=== PATIENT | male | born 1935 | race Caucasian/White ===

== ENCOUNTER 2021-07-16 03:49 | Inpatient (IN) | payer MEDICARE, OTHER ==
[~2021-07-16] VITALS: Ht 170.2 cm; Wt 72.6 kg
[2021-07-16] MEDS ORDERED: ONDANSETRON 4 MG/2 ML VIAL IV ONE (04:00)
[2021-07-16] MEDS ORDERED: IV NORMAL SALINE 1000 ML BAG IV ONE (04:00)
--- NOTE | 2021-07-16 04:00 | NUR ---
Patient bib RA from with c/o nausea and vomiting since this morning.
[2021-07-16 04:07] LABS: HEMATOCRIT 44.4 % (36.7-47.1); MEAN CORPUSCULAR HEMOGLOBIN 26.8 uug (23.8-33.4); MEAN CORPUSCULAR VOLUME 80.6 fL (73.0-96.2); PLATELET COUNT (AUTO) 174 K/uL (152-348)
[2021-07-16] MEDS ORDERED: ONDANSETRON 4 MG/2 ML VIAL ONE (04:12)
[2021-07-16 04:16] LABS: CREATININE 1.1 mg/dL (0.6-1.3); POTASSIUM 4.6 mmol/L (3.5-5.1)
[2021-07-16 04:21] LABS: BILIRUBIN,DIRECT 0.4 mg/dL (0.0-0.2); TOTAL PROTEIN, SERUM 7.2 g/dL (6.4-8.2)
[2021-07-16 04:32] LABS: NEUTROPHILS % (MANUAL) 0 % (42-75)
[2021-07-16] MEDS ORDERED: SWABABLE VALVE TRANSFER SET EA MC ONE (05:28)
[2021-07-16] MEDS ORDERED: IV NORMAL SALINE 250 ML IV ONE (05:28)
[2021-07-16] MEDS ORDERED: IOHEXOL 300MG/ML 100 ML INFUS..BTL ONE (05:28)
[2021-07-16 06:12] LABS: *BILIRUBIN,URIN NEGATIVE (NEGATIVE); *BLOOD, URINE NEGATIVE (NEGATIVE); *CLARITY,URINE CLEAR (CLEAR); *COLOR,URINE YELLOW (YELLOW); *KETONES,URINE 2+ (NEGATIVE); LEUKOCYTE ESTERASE ,URINE NEGATIVE (NEGATIVE); NITRITE, URINE NEGATIVE (NEGATIVE); PH,URINE 7.5 (5.0-8.0); UGLUCOSE NEGATIVE (NEGATIVE)
[2021-07-16 06:19] LABS: BACTERIA,URINE NONE SEEN /HPF (NONE SEEN); RBC,URINE 0-3 /HPF (0-3); SQUAMOUS EPITHELIAL CELL,UR FEW /HPF (NONE SEEN); WBC,URINE NONE SEEN /HPF (0-3)
--- NOTE | 2021-07-16 06:47 | NUR ---
PATIENT UNABLE TO RECALL COMPLETE MEDICAL HX AND HOME MEDICATION AT THIS TIME. CALLED PATIENT'S LUTHER TO OBTAIN HOME MEDS AND HX BUT NO ANSWER.
--- NOTE | 2021-07-16 07:08 | NUR ---
NG 16fr inserted to right nare and placed on intermittent low suction, patient tolerate well.
--- NOTE | 2021-07-16 07:13 | NUR ---
Handoff to GAGE Christine.
--- NOTE | 2021-07-16 07:22 | NUR ---
Dr Barajas spoke to Dr Vargas(Surgeon).
--- NOTE | 2021-07-16 07:25 | NUR ---
Pt denies nausea, NG draining yellowish/green GI content. Continue monitoring.
--- NOTE | 2021-07-16 10:24 | NUR ---
No C/O pain/nausea, pt is aware of being NPO. Pt assissted w/ urinal.
--- NOTE | 2021-07-16 14:31 | NUR ---
PT has NG drainage at this time. Addendum: 07/16/21 at 1557 by MYOUABIAN Less NG tube drainage.
--- NOTE | 2021-07-16 15:10 | NUR ---
Spoke to Pt's Gladys. Meication list provided, and entered in [employer].
[2021-07-16] MEDS ORDERED: CINN1CAP PO (15:13)
[2021-07-16] MEDS ORDERED: [UNRECOGNIZED DRUG - OTHER] IJ (15:13)
[2021-07-16] MEDS ORDERED: VITA1CAP PO (15:13)
[2021-07-16] MEDS ORDERED: ZINC50TA65 PO (15:13)
[2021-07-16] MEDS ORDERED: IPRA0.2S48 NEB (15:13)
[2021-07-16] MEDS ORDERED: ASPI-612 PO (15:13)
[2021-07-16] MEDS ORDERED: LEVO75TA7 PO (15:13)
[2021-07-16] MEDS ORDERED: CARB1TAB21 PO (15:13)
[2021-07-16] MEDS ORDERED: ESOM40CA PO (15:13)
[2021-07-16] MEDS ORDERED: RASA0.5T2 PO (15:13)
[2021-07-16] MEDS ORDERED: DIATR MEGLU/DIATRIZOATE SODIUM 30 ML BOTTLE ONE (15:20)
--- NOTE | 2021-07-16 15:20 | NUR ---
Placed a call to [employer]. Awaiting Dr Borrero call back.
--- NOTE | 2021-07-16 15:25 | NUR ---
NG tube clamped. Pt started drinking oral contrast.
--- NOTE | 2021-07-16 15:35 | NUR ---
Pt able to tolorate oral contrast, denies nausea. biofuels technology manager at the bedside.
--- NOTE | 2021-07-16 16:46 | NUR ---
2nd call placed for Dr Borrero, awaiting call back.
--- NOTE | 2021-07-16 16:50 | NUR ---
Dr Borrero at the bedside for MSE.
[2021-07-16] MEDS ORDERED: ONDANSETRON 4 MG/2 ML VIAL IV PRN (18:00)
[2021-07-16] MEDS ORDERED: ZOLPIDEM 5 MG TABLET PO PRN (18:00)
[2021-07-16] MEDS ORDERED: MORPHINE SULFATE 4 MG/1 ML DISP.SYRIN IV PRN (18:00)
[2021-07-16] MEDS ORDERED: ACETAMINOPHEN 325 MG TABLET PO PRN (18:00)
[2021-07-16] MEDS ORDERED: Z GUARD REMEDY PASTE 57 GM TUBE TOP PRN (18:00)
[2021-07-16] MEDS ORDERED: MAGNESIUM HYDROXIDE 30 ML LIQUID UDC PO PRN (18:00)
[2021-07-16 18:14] VITALS: BP 118/66
[2021-07-16] MEDS: IV D5 1/2 NS 1000 ML 1,000 ML IV PRN (18:41)
--- NOTE | 2021-07-16 19:30 | NUR ---
RECEIVE PT AWAKE, ALERT AND ORIENTEDX4. PT IN NO ACUTE DISTRESS. IV INTACT. PT ON NGTUBE NO SUCTION BECAUSE PT WILL HAVE HIS SMALL BOWEL XRAY. SON IN LAW AT BEDSIDE. SAFETY AND COMFORT PROVIDED. WILL CONTINUE TO MONITOR.
[2021-07-16 20:00] VITALS: BP 98/53
--- NOTE | 2021-07-16 20:00 | NUR ---
message Dr. Borrero regarding reconciliation medication of the pt specificcaly Parkinson's medication and update that the xray for small bowel will be 0h.
--- NOTE | 2021-07-16 22:21 | NUR ---
Dr. Borrero replied to hold the po meds because he is on ngt suction at 2205h
[2021-07-17] MEDS: IV D5 1/2 NS 1000 ML 1,000 ML IV PRN ×3 (02:45→22:10)
[2021-07-17 04:00] VITALS: BP 99/62
--- NOTE | 2021-07-17 05:53 | NUR ---
MRI CHECKLIST SIGNED. PT IN NO ACUTE DISTRESS.
--- NOTE | 2021-07-17 05:56 | NUR ---
PT SLEPT INTERMITTENTLY.PT IN NO ACUTE DISTRESS. IV INTACT. NGT INTACT , LOW CONTINUOUS INTERMITTENT SUCTION AND DRAINING BILIOUS DRAINAGE. . PRESCRIBED MEDICATION GIVEN AND PT TOLERATED IT WELL.SAFETY AND COMFORT PROVIDED.ALL NEEDS ARE MET. WILL ENDORSE TO INCOMING NURSE FOR CONTINUITY OF CARE.
[2021-07-17 07:59] LABS: HEMATOCRIT 38.3 % (36.7-47.1); MEAN CORPUSCULAR HEMOGLOBIN 27.1 uug (23.8-33.4); MEAN CORPUSCULAR VOLUME 80.4 fL (73.0-96.2); PLATELET COUNT (AUTO) 160 K/uL (152-348)
[2021-07-17 08:08] LABS: CREATININE 0.8 mg/dL (0.6-1.3); PHOSPHOROUS 3.2 mg/dL (2.5-4.9); POTASSIUM 3.7 mmol/L (3.5-5.1)
[2021-07-17] MEDS: PANTOPRAZOLE SODIUM 40 MG VIAL IV SCH (08:17)
[2021-07-17 08:22] LABS: THYROID STIMULATING HORMONE 1.992 mIU/mL (0.358-3.740)
[2021-07-17 12:00] VITALS: BP 104/64
[2021-07-17 16:00] VITALS: BP 126/69
--- NOTE | 2021-07-17 18:35 | NUR ---
little blood noted in the ng tube primary Md and surgery md notified new orders received noted and carried out.
[2021-07-17 20:00] VITALS: BP 93/65
[2021-07-18 04:00] VITALS: BP 114/68
--- NOTE | 2021-07-18 05:26 | NUR ---
Pt slept throughout the night. Jerry pain or SOB. IV site intact. NG tube hooked up to low intermittent suction, tolerating well. Safety and comfort provided. No other issues or concerns at this time, will endorse to day shift.
[2021-07-18] MEDS: IV D5 1/2 NS 1000 ML 1,000 ML IV PRN ×2 (06:10→15:27)
[2021-07-18 06:51] LABS: HEMATOCRIT 38.2 % (36.7-47.1); MEAN CORPUSCULAR HEMOGLOBIN 26.8 uug (23.8-33.4); MEAN CORPUSCULAR VOLUME 81.3 fL (73.0-96.2); PLATELET COUNT (AUTO) 158 K/uL (152-348)
[2021-07-18 07:18] LABS: CREATININE 0.7 mg/dL (0.6-1.3); PHOSPHOROUS 3.2 mg/dL (2.5-4.9); POTASSIUM 3.6 mmol/L (3.5-5.1)
[2021-07-18] MEDS: PANTOPRAZOLE SODIUM 40 MG VIAL IV SCH (08:01)
--- NOTE | 2021-07-18 09:29 | NUR ---
pt walk in the hallway tolerated well mo passing gas or burping
[2021-07-18 11:29] VITALS: BP 132/75
[2021-07-18 14:39] VITALS: BP 127/75
[2021-07-18 20:07] VITALS: BP 117/70
--- NOTE | 2021-07-18 23:31 | NUR ---
Informed by evening shift Technologist: Per RN Cherelle SCHUMACHER 1 view to be performed in the AM. Scheduled as a Routine abdominal distention, f/u sbft; found on requisition face. notes written and will scanned when finished
[2021-07-19] MEDS: IV D5 1/2 NS 1000 ML 1,000 ML IV PRN ×3 (00:10→18:08)
[2021-07-19 04:25] VITALS: BP 119/70
--- NOTE | 2021-07-19 05:49 | NUR ---
Pt slept throughout the night. Denies pain or SOB. NG tube hooked up to low intermittent suction, tolerating well with no pain. KUB scheduled today. Patient IV site intact. Able to make needs known. No distress noted. No other issues or concerns at this time, will endorse to day shift.
[2021-07-19 07:24] LABS: HEMATOCRIT 38.2 % (36.7-47.1); MEAN CORPUSCULAR HEMOGLOBIN 26.6 uug (23.8-33.4); MEAN CORPUSCULAR VOLUME 81.3 fL (73.0-96.2); PLATELET COUNT (AUTO) 180 K/uL (152-348)
[2021-07-19 07:51] LABS: CREATININE 0.8 mg/dL (0.6-1.3); PHOSPHOROUS 3.6 mg/dL (2.5-4.9); POTASSIUM 3.6 mmol/L (3.5-5.1)
[2021-07-19] MEDS: PANTOPRAZOLE SODIUM 40 MG VIAL IV SCH (08:02)
[2021-07-19 12:10] VITALS: BP 124/59
[2021-07-19] MEDS ORDERED: PIPERACILLIN SODIUM/TAZOBACTAM 3.375 G in IV DEXTROSE 5% 50 ML IV ONE (14:00)
[2021-07-19 16:09] VITALS: BP 107/45
[2021-07-19] MEDS ORDERED: PIPERACILLIN SODIUM/TAZOBACTAM 3.375 G in IV DEXTROSE 5% 50 ML IV SCH (18:00)
[2021-07-19 20:00] VITALS: BP 103/49
[2021-07-19] MEDS: PIPERACILLIN SODIUM/TAZOBACTAM 3.375 G in IV DEXTROSE 5% 100 ML IV SCH (22:21)
[2021-07-20 04:10] VITALS: BP 102/58
--- NOTE | 2021-07-20 05:32 | NUR ---
Pt slept throughout the night. Denies pain or any discomfort. No SOB. IV was leaking, new one started, tolerated well. Running ordered fluids. NG tube in place on low intermittent suction. No other issues or concerns at this time. Safety and comfort provided, will endorse to day shift.
[2021-07-20] MEDS: IV D5 1/2 NS 1000 ML 1,000 ML IV PRN ×2 (05:58→15:52)
[2021-07-20] MEDS: PIPERACILLIN SODIUM/TAZOBACTAM 3.375 G in IV DEXTROSE 5% 100 ML IV SCH ×3 (06:02→22:48)
[2021-07-20 06:17] LABS: HEMATOCRIT 38.1 % (36.7-47.1); MEAN CORPUSCULAR HEMOGLOBIN 26.6 uug (23.8-33.4); MEAN CORPUSCULAR VOLUME 80.7 fL (73.0-96.2); PLATELET COUNT (AUTO) 213 K/uL (152-348)
[2021-07-20 06:48] LABS: CREATININE 0.9 mg/dL (0.6-1.3); PHOSPHOROUS 5.1 mg/dL (2.5-4.9); POTASSIUM 3.5 mmol/L (3.5-5.1)
--- NOTE | 2021-07-20 07:00 | NUR ---
RECEIVE PT AWAKE, ALERT AND ORIENTEDX4. PT IN NO ACUTE DISTRESS. IV INTACT. PT ON N G TUBE SUCTION to low interment . SAFETY AND COMFORT PROVIDED. WILL CONTINUE TO MONITOR. call light with in reach
[2021-07-20] MEDS: PANTOPRAZOLE SODIUM 40 MG VIAL IV SCH (09:02)
[2021-07-20 12:00] VITALS: BP 97/60
[2021-07-20 16:10] VITALS: BP 115/67
--- NOTE | 2021-07-20 17:56 | NUR ---
pt walk in the hallway tolerated well
--- NOTE | 2021-07-20 19:00 | NUR ---
RECD PT IN BED, RESTING QUIETLY , NO DISTRESS NOTED,ALERT AND ORIENTED,IV SITE ON RIGHT FOREARM PATENT AND INTACT,D51/2 NS@125 ML/HR,NPO MAINTAINED,ABLE TO USE URINAL.NGT IN PLACE, CONNECTED TO LOW INTERMITTENT SUCTION.SLEPT ON AND OFF. CALL LITE W/I REACH.
[2021-07-20 20:06] VITALS: BP 116/66
[2021-07-21] MEDS: IV D5 1/2 NS 1000 ML 1,000 ML IV PRN ×3 (00:45→17:15)
[2021-07-21 04:06] VITALS: BP 129/57
[2021-07-21] MEDS: PIPERACILLIN SODIUM/TAZOBACTAM 3.375 G in IV DEXTROSE 5% 100 ML IV SCH ×3 (05:33→21:01)
[2021-07-21 06:35] LABS: HEMATOCRIT 38.6 % (36.7-47.1); MEAN CORPUSCULAR HEMOGLOBIN 26.5 uug (23.8-33.4); MEAN CORPUSCULAR VOLUME 80.5 fL (73.0-96.2); PLATELET COUNT (AUTO) 230 K/uL (152-348)
[2021-07-21 06:43] LABS: CREATININE 0.8 mg/dL (0.6-1.3); PHOSPHOROUS 3.8 mg/dL (2.5-4.9); POTASSIUM 3.4 mmol/L (3.5-5.1)
--- NOTE | 2021-07-21 07:00 | NUR ---
PT RECEIVED IN BED AWAKE NO C/O PAIN NOTED ,NG TUBE IS ON LOW INTERMENT SUCTION ,CALL LIGHT WITH IN REACH
[2021-07-21] MEDS: PANTOPRAZOLE SODIUM 40 MG VIAL IV SCH (08:16)
[2021-07-21 09:50] LABS: BILIRUBIN,DIRECT 0.3 mg/dL (0.0-0.2); BILIRUBIN,TOTAL 1.1 mg/dL (0.2-1.0); TOTAL PROTEIN, SERUM 6.4 g/dL (6.4-8.2)
[2021-07-21] MEDS: POTASSIUM CHLORIDE 50 ML IV SCH ×2 (10:25→10:57)
[2021-07-21 11:37] VITALS: BP 151/55
--- NOTE | 2021-07-21 13:00 | NUR ---
PT WALK IN THE HALLWAY TOLERATED WELL PASSING GAS NO BM
[2021-07-21 15:39] VITALS: BP 128/76
[2021-07-21 20:03] VITALS: BP 120/71
[2021-07-22] MEDS: IV D5 1/2 NS 1000 ML 1,000 ML IV PRN ×3 (01:10→18:20)
[2021-07-22 04:04] VITALS: BP 121/65
[2021-07-22] MEDS: PIPERACILLIN SODIUM/TAZOBACTAM 3.375 G in IV DEXTROSE 5% 100 ML IV SCH ×3 (05:02→21:26)
[2021-07-22 06:36] LABS: HEMATOCRIT 39.2 % (36.7-47.1); MEAN CORPUSCULAR HEMOGLOBIN 26.6 uug (23.8-33.4); MEAN CORPUSCULAR VOLUME 81.3 fL (73.0-96.2); PLATELET COUNT (AUTO) 234 K/uL (152-348)
[2021-07-22 07:02] LABS: BILIRUBIN,TOTAL 0.9 mg/dL (0.2-1.0); CREATININE 0.7 mg/dL (0.6-1.3); PHOSPHOROUS 3.6 mg/dL (2.5-4.9); POTASSIUM 3.4 mmol/L (3.5-5.1)
[2021-07-22] MEDS: PANTOPRAZOLE SODIUM 40 MG VIAL IV SCH (08:14)
[2021-07-22] MEDS ORDERED: POTASSIUM CHLORIDE 20 MEQ POWDER PACKET NG ONE (09:15)
[2021-07-22] MEDS: CARBIDOPA/LEVODOPA 25-100MG TABLET NG SCH ×3 (09:52→16:56)
[2021-07-22 11:30] VITALS: BP 136/70
[2021-07-22 16:00] VITALS: BP 137/67
--- NOTE | 2021-07-22 19:48 | NUR ---
Patient resting in room. AOx4. On room air. No signs of acute distress. With NG tube. No bowel movement during shift. Patient denies nausea/ vomiting. Patient denies pain/ discomfort. Compliant with medications and care. Safety measures provided. Will endorse to incoming shift.
[2021-07-22 20:16] VITALS: BP 106/60
[2021-07-23 04:00] VITALS: BP 134/71
[2021-07-23] MEDS: IV D5 1/2 NS 1000 ML 1,000 ML IV PRN ×2 (04:55→13:09)
[2021-07-23] MEDS: PIPERACILLIN SODIUM/TAZOBACTAM 3.375 G in IV DEXTROSE 5% 100 ML IV SCH ×2 (05:13→14:03)
[2021-07-23 06:34] LABS: HEMATOCRIT 38.1 % (36.7-47.1); MEAN CORPUSCULAR HEMOGLOBIN 26.7 uug (23.8-33.4); MEAN CORPUSCULAR VOLUME 80.4 fL (73.0-96.2); PLATELET COUNT (AUTO) 244 K/uL (152-348)
[2021-07-23 07:06] LABS: CREATININE 0.8 mg/dL (0.6-1.3); PHOSPHOROUS 3.4 mg/dL (2.5-4.9); POTASSIUM 3.3 mmol/L (3.5-5.1)
--- NOTE | 2021-07-23 07:30 | NUR ---
Patient received in bed, alert and oriented. Patient has clamped NG tube in place. RA with no SOB or difficulties breathing. No acute distress noted at this time. Urinal within easy reach. Right FA IV patent running IVF as ordered. No c/o pain or discomforts. Call light and personal belongings within easy reach. Will continue to monitor.
[2021-07-23] MEDS: PANTOPRAZOLE SODIUM 40 MG VIAL IV SCH (08:16)
[2021-07-23] MEDS: CARBIDOPA/LEVODOPA 25-100MG TABLET NG SCH ×3 (08:16→18:00)
[2021-07-23] MEDS ORDERED: POTASSIUM CHLORIDE 20 MEQ POWDER PACKET GT ONE (09:15)
[2021-07-23 11:39] VITALS: BP 116/68
[2021-07-23 16:00] VITALS: BP 104/58
[2021-07-23] MEDS ORDERED: ZOLP5TAB8 PO ×2 (18:03→23:28)
[2021-07-23] MEDS ORDERED: CARB1TAB21 NG (18:03)
[2021-07-23] MEDS ORDERED: ONDA4VIA23 IV ×2 (18:03→23:28)
[2021-07-23] MEDS ORDERED: PIPE3.379 IV ×2 (18:03→23:28)
[2021-07-23] MEDS ORDERED: ACET325T53 PO (18:03)
[2021-07-23] MEDS ORDERED: ACID1TAB4 PO ×2 (18:03→23:28)
[2021-07-23] MEDS ORDERED: MULT-594 PO ×2 (18:03→23:28)
[2021-07-23] MEDS ORDERED: MAGN400O6 PO ×2 (18:03→23:28)
[2021-07-23 20:00] VITALS: BP 89/47
[2021-07-23] MEDS ORDERED: ACET-2154 PO (23:28)
[2021-07-23] MEDS ORDERED: LEVO75TA7 PO (23:28)
[2021-07-23] MEDS ORDERED: CARB1TAB21 PO (23:28)
== END 2021-07-23 21:01 | DRG 388 ==
LOC: ER 04:19 → TRANSITION 14:55 → MEDSURG3 17:29
PROVIDERS: ADMIT Student in an Organized Health Care Education/Training Program; ATTEND Internal Medicine
DX: K56.609 Unspecified intestinal obstruction, unspecified as to partial versus complete obstruction (principal); N17.0 Acute kidney failure with tubular necrosis; E43 Unspecified severe protein-calorie malnutrition; D68.59 Other primary thrombophilia; A04.9 Bacterial intestinal infection, unspecified; E87.1 Hypo-osmolality and hyponatremia; N28.1 Cyst of kidney, acquired; E03.9 Hypothyroidism, unspecified; E78.5 Hyperlipidemia, unspecified; E86.0 Dehydration; E87.6 Hypokalemia; G20 Parkinson's disease; N32.3 Diverticulum of bladder; Z90.49 Acquired absence of other specified parts of digestive tract; K80.50 Calculus of bile duct without cholangitis or cholecystitis without obstruction; Z74.09 Other reduced mobility; R73.9 Hyperglycemia, unspecified; K59.00 Constipation, unspecified; Z20.822 Contact with and (suspected) exposure to COVID-19; Z68.25 Body mass index [BMI] 25.0-25.9, adult
CPT/HCPCS: 36415; 70030-TC; 71045; 74018; 74181; 74250; 83690; 83735; 84100; 84443; 85025; 85730; 87086; 93005; 97161; C9113; G0378; J2405; J2543; J3480; J3490; J7030; J7050; J7060; Q9963; Q9967

== ENCOUNTER 2021-07-23 21:53 | Inpatient (IN) | payer MEDICARE, OTHER ==
[~2021-07-23] VITALS: Ht 170.2 cm; Wt 72.6 kg
[~2021-07-23 21:53] MED LIST: ACET325T53 PO; ACID1TAB4 PO; ASPI-612 PO; CARB1TAB21 NG; CARB1TAB21 PO; CINN1CAP PO; ESOM40CA PO; IPRA0.2S48 NEB; LEVO75TA7 PO; MAGN400O6 PO; MULT-594 PO; ONDA4VIA23 IV; PIPE3.379 IV; RASA0.5T2 PO; VITA1CAP PO; ZINC50TA65 PO; ZOLP5TAB8 PO; [UNRECOGNIZED DRUG - OTHER] IJ
[2021-07-23] MEDS ORDERED: ACETAMINOPHEN 325 MG TABLET PO PRN (22:00)
[2021-07-23] MEDS ORDERED: Z GUARD REMEDY PASTE 57 GM TUBE TOP PRN (23:15)
[2021-07-23] MEDS ORDERED: ACET-2154 PO (23:28)
[2021-07-23] MEDS ORDERED: LEVO75TA7 PO (23:28)
[2021-07-23] MEDS ORDERED: CARB1TAB21 PO (23:28)
[2021-07-23] MEDS ORDERED: ONDA4VIA23 IV (23:28)
[2021-07-23] MEDS ORDERED: ZOLP5TAB8 PO (23:28)
[2021-07-23] MEDS ORDERED: PIPE3.379 IV (23:28)
[2021-07-23] MEDS ORDERED: MULT-594 PO (23:28)
[2021-07-23] MEDS ORDERED: ACID1TAB4 PO (23:28)
[2021-07-23] MEDS ORDERED: MAGN400O6 PO (23:28)
[2021-07-24 04:00] VITALS: BP 106/62
--- NOTE | 2021-07-24 04:32 | NUR ---
Admitted 85 y/o male from med surg to ARU with dx of SBO. Alert and oriented x3, on room air with no respiratory distress noted. Heplock on R FA intact and flushed with NS. Denies pain and discomfort at this time. Full body assessment done and belongings list done by HEPATOLOGIST. Seen by Ben FALCON. Per Dr. Maria, he will do med recon in AM. Urinal at bedside. All needs attended. Call light placed within reach. Will continue to monitor.
[2021-07-24 08:00] VITALS: BP 117/62
[2021-07-24] MEDS: CARBIDOPA/LEVODOPA 25-100MG TABLET PO SCH ×3 (09:55→17:10)
[2021-07-24] MEDS ORDERED: MAGNESIUM HYDROXIDE 30 ML LIQUID UDC PO PRN (11:30)
[2021-07-24] MEDS ORDERED: ONDANSETRON 4 MG/2 ML VIAL IV PRN (11:30)
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
[2021-07-24] MEDS: PIPERACILLIN SODIUM/TAZOBACTAM 3.375 G in IV DEXTROSE 5% 50 ML IV SCH ×2 (15:02→21:27)
[2021-07-24 15:57] VITALS: BP 112/62
--- NOTE | 2021-07-24 16:59 | NUR ---
Patient seen by Dr. Maria, update given to MD, with no new order at this time.
[2021-07-24 20:18] VITALS: BP 101/56
[2021-07-24] MEDS ORDERED: ZOLPIDEM 5 MG TABLET PO PRN (21:00)
--- NOTE | 2021-07-24 21:54 | NUR ---
Received resident on bed with no respiratory distress noted. Alert and oriented x3, able to make needs known. Saline lock on R forearm remains intact, flushed with NS. Denies pain and discomfort at this time. Yarely RUELAS seen and examined pt with order for KUB abdomen presley AM and to continue on full liquids diet. Urinal at bedside. Due IV medication given on time, no s/sx of infiltration on IV site. All needs attended. Call light placed within reach. Will continue to monitor.
[2021-07-25 04:25] VITALS: BP 114/63
[2021-07-25] MEDS: PIPERACILLIN SODIUM/TAZOBACTAM 3.375 G in IV DEXTROSE 5% 50 ML IV SCH ×3 (05:12→21:01)
[2021-07-25 08:00] VITALS: BP 118/63
[2021-07-25] MEDS: ACIDOPHILUS/BULGARICUS CHEW TAB PO SCH (08:19)
[2021-07-25] MEDS: LEVOTHYROXINE SODIUM 75 MCG TABLET PO SCH (08:19)
[2021-07-25] MEDS: MULTIVITAMINS,THERAPEUTIC TABLET PO SCH (08:20)
[2021-07-25] MEDS: CARBIDOPA/LEVODOPA 25-100MG TABLET PO SCH ×3 (08:20→18:16)
[2021-07-25] MEDS ORDERED: Medication Not On Formulary EA (Multivitamins (Multivitamin) 1 EACH) PO SCH (09:00)
[2021-07-25 16:00] VITALS: BP 126/67
--- NOTE | 2021-07-25 17:51 | NUR ---
Patient advance diet to soft as per recommendation by JESSENIA Troy. MD Maria aware. Patietn agreed to diet. tolerated well. not in distress. will continue monitor
[2021-07-25 19:51] VITALS: BP 113/69
--- NOTE | 2021-07-26 03:21 | NUR ---
Awake alert and oriented x3 Needs attended. VSS. Admitted for small bowel obstruction. Needs attended. Fall precautions maintained. Kept comfortable. On IV ABT given as scheduled. Will monitor patient.
[2021-07-26 04:38] VITALS: BP 126/69
[2021-07-26 06:02] LABS: HEMATOCRIT 37.3 % (36.7-47.1); MEAN CORPUSCULAR HEMOGLOBIN 26.7 uug (23.8-33.4); MEAN CORPUSCULAR VOLUME 81.2 fL (73.0-96.2); PLATELET COUNT (AUTO) 252 K/uL (152-348)
[2021-07-26 06:15] LABS: BILIRUBIN,TOTAL 0.6 mg/dL (0.2-1.0); CREATININE 0.9 mg/dL (0.6-1.3); MAGNESIUM 2.3 mg/dL (1.8-2.4); PHOSPHOROUS 3.8 mg/dL (2.5-4.9); TOTAL PROTEIN, SERUM 6.1 g/dL (6.4-8.2)
[2021-07-26 08:00] VITALS: BP 135/72
[2021-07-26] MEDS: LEVOTHYROXINE SODIUM 75 MCG TABLET PO SCH (09:22)
[2021-07-26] MEDS: ACIDOPHILUS/BULGARICUS CHEW TAB PO SCH (09:22)
[2021-07-26] MEDS: CARBIDOPA/LEVODOPA 25-100MG TABLET PO SCH ×3 (09:22→16:38)
[2021-07-26] MEDS: MULTIVITAMINS,THERAPEUTIC TABLET PO SCH (09:22)
--- NOTE | 2021-07-26 13:36 | NUR ---
INDIVIDUALIZED PLAN OF CARE
[2021-07-26 20:00] VITALS: BP 109/70
--- NOTE | 2021-07-26 22:52 | NUR ---
awake.alert. in no acute distress , no complaints made. resting comfoertably.
[2021-07-27 04:00] VITALS: BP 94/55
--- NOTE | 2021-07-27 06:50 | NUR ---
SLEPT MOST OF THE NITE.IN NO ACUTE DISTRESS.
--- NOTE | 2021-07-27 07:34 | NUR ---
RECEIVED PATIENT IN BED AWAKE ALERT AND ORIENTED DENIES PAIN OR DISCOMFORTS AT THIS TIME ON ROOM AIR WITH NO SHORTNESS OF BREATH CALL LIGHTS AND PERSONAL BELONGINGS ARE WITHIN EASY REACH AT THIS TIME WILL CONTINUE WITH REHABILITATION THERAPY ORDERED WILL CONTINUE TO OBSERVE.
[2021-07-27 07:53] VITALS: BP 116/63
[2021-07-27] MEDS: LEVOTHYROXINE SODIUM 75 MCG TABLET PO SCH (08:26)
[2021-07-27] MEDS: CARBIDOPA/LEVODOPA 25-100MG TABLET PO SCH ×3 (08:26→17:15)
[2021-07-27] MEDS: MULTIVITAMINS,THERAPEUTIC TABLET PO SCH (08:26)
[2021-07-27] MEDS: ACIDOPHILUS/BULGARICUS CHEW TAB PO SCH (08:26)
--- NOTE | 2021-07-27 10:00 | NUR ---
AMBULATED WITH THE PHYSICAL THERAPIST TO THE REHAB GYM FOR HIS PHYSICAL THERAPEUTIC EXERCISES ORDERED WITH GOOD ENDURANCE.
[2021-07-27 15:53] VITALS: BP 94/51
--- NOTE | 2021-07-27 17:56 | NUR ---
PATIENT IS EATING DINNER RESTING ALERT ORIENTED DENIES DISCOMFORTS PERSONAL BELONGINGS WITHIN EASY REACH WILL CONTINUE TO OBSERVE.
[2021-07-27 20:00] VITALS: BP 101/56
[2021-07-28 04:00] VITALS: BP 119/75
--- NOTE | 2021-07-28 08:00 | NUR ---
AWAKE ALERT AND ORIENTED DENIES DISCOMFORTS AT THIS TIME ON ROOM AIR WITH NO SHORTNESS OF BREATH CALL LIGHTS AND PERSONAL BELONGINGS ARE WITHIN EASY REACH MADE COMFORTABLE WILL CONTINUE WITH REHAB ORDERED.
[2021-07-28 08:03] VITALS: BP 111/62
[2021-07-28] MEDS: CARBIDOPA/LEVODOPA 25-100MG TABLET PO SCH ×3 (08:53→16:52)
[2021-07-28] MEDS: LEVOTHYROXINE SODIUM 75 MCG TABLET PO SCH (08:53)
[2021-07-28] MEDS: ACIDOPHILUS/BULGARICUS CHEW TAB PO SCH (08:53)
[2021-07-28] MEDS: MULTIVITAMINS,THERAPEUTIC TABLET PO SCH (08:53)
[2021-07-28 16:00] VITALS: BP 108/63
--- NOTE | 2021-07-28 18:00 | NUR ---
RESTING IN BED TOLERATED PHYSICAL THERAPY ORDERED DENIES DISCOMFORTS WILL CONTINUE TO OBSERVE.
[2021-07-28 20:12] VITALS: BP 103/62
--- NOTE | 2021-07-29 00:59 | NUR ---
Awake alert and oriented x3-4 Forgetful at times. VSS. No acute distress noted. Fall precautions maintained. Denies any pain nor any discomfort. Right arm heplock. Voiding well in the bR. BM noted this shift. All needs atttended. All due meds given without difficulty. BLE discolartion noted. Will monitor patient.
[2021-07-29 04:43] VITALS: BP 112/64
[2021-07-29 08:00] VITALS: BP 103/63
[2021-07-29] MEDS: ACIDOPHILUS/BULGARICUS CHEW TAB PO SCH (08:59)
[2021-07-29] MEDS: MULTIVITAMINS,THERAPEUTIC TABLET PO SCH (08:59)
[2021-07-29] MEDS: LEVOTHYROXINE SODIUM 75 MCG TABLET PO SCH (09:00)
[2021-07-29] MEDS: CARBIDOPA/LEVODOPA 25-100MG TABLET PO SCH ×3 (09:00→16:45)
--- NOTE | 2021-07-29 14:21 | NUR ---
INTERDISCIPLINARY TEAM CONFERENCE
[2021-07-29 16:05] VITALS: BP 93/61
--- NOTE | 2021-07-29 18:42 | NUR ---
Patient remains alert, oriented x3, not in any form of distress, on room air. Vital signs stable. He denies any pain or discomfort. Compliant with medications. Needs attended to promptly. Patient participated with PT/OT/ST and tolerated well. Will continue to monitor and will endorse accordingly.
[2021-07-29 20:14] VITALS: BP 106/63
--- NOTE | 2021-07-29 20:56 | NUR ---
Received resident on bed with no respiratory distress noted. Alert and oriented x3, able to make needs known. Saline lock on R forearm remains intact, flushed with NS. Denies pain and discomfort at this time. Urinal at bedside. All needs attended. Call light placed within reach. Will continue to monitor.
[2021-07-30 04:15] VITALS: BP 102/63
--- NOTE | 2021-07-30 05:44 | NUR ---
Pt slept throughout the night, easily arousable. Denies pain and discomfort at this time. BRP and with urinal at bedside. All needs attended. Call light placed within reach. Frequent visual checks done. Will endorse to next shift for continuity of care.
[2021-07-30 08:07] VITALS: BP 111/62
--- NOTE | 2021-07-30 09:30 | NUR ---
Received pt resting in bed comfortably. Awake & alert. No signs or symptoms of acute distress noted. Denies any pain. R forearm saline lock intact. No signs of infection noted. Assisted with AM care. All needs attended to. Call light within reach. Bed in lowest position. Will continue to monitor.
[2021-07-30] MEDS: LEVOTHYROXINE SODIUM 75 MCG TABLET PO SCH (09:51)
[2021-07-30] MEDS: MULTIVITAMINS,THERAPEUTIC TABLET PO SCH (09:51)
[2021-07-30] MEDS: ACIDOPHILUS/BULGARICUS CHEW TAB PO SCH (09:51)
[2021-07-30] MEDS: CARBIDOPA/LEVODOPA 25-100MG TABLET PO SCH ×3 (09:51→17:10)
[2021-07-30 15:20] VITALS: BP 101/51
[2021-07-30 20:00] VITALS: BP 102/57
--- NOTE | 2021-07-31 01:52 | NUR ---
Awake alert and oriented x3-4 Had some periods of forgetfulness noted. VSS Needs attended. Fall precautions maintained. Call zafar within reach. Kept comfortable. Voiding freely in the urinal. All due meds given. Will monitor patient.
[2021-07-31 04:00] VITALS: BP 120/71
--- NOTE | 2021-07-31 06:34 | NUR ---
End of shift notes: Quiet night. No acute distress noted.VSS. Voiding well in the urinal. No complaints presented during shift. Fall precautions maintained.Call zafar within reach.
[2021-07-31 07:25] VITALS: BP 120/67
[2021-07-31] MEDS: CARBIDOPA/LEVODOPA 25-100MG TABLET PO SCH ×3 (08:02→16:25)
[2021-07-31] MEDS: LEVOTHYROXINE SODIUM 75 MCG TABLET PO SCH (08:02)
[2021-07-31] MEDS: MULTIVITAMINS,THERAPEUTIC TABLET PO SCH (08:02)
[2021-07-31] MEDS: ACIDOPHILUS/BULGARICUS CHEW TAB PO SCH (08:02)
[2021-07-31 15:52] VITALS: BP 110/70
[2021-07-31 20:05] VITALS: BP 127/69
--- NOTE | 2021-07-31 23:56 | NUR ---
NSG: Resting quitley. Fall precautions maintained. Call zafar within reach. Kept comfortable. Voiding freely in the urinal. Will monitor patient.
[2021-08-01 04:05] VITALS: BP 134/78
[2021-08-01 04:36] VITALS: BP 134/78
--- NOTE | 2021-08-01 05:03 | NUR ---
NSG: Pt slept well throughout the night. Denies pain and discomfort at this time. uses urinal at bedside. All needs attended. Call light within reach. instructed to call nurse for assistance. Frequent visual checks done. continue plan of care.
[2021-08-01] MEDS: LEVOTHYROXINE SODIUM 75 MCG TABLET PO SCH (06:03)
[2021-08-01 07:24] VITALS: BP 125/81
--- NOTE | 2021-08-01 08:00 | NUR ---
Received patient alert and oriented x 4, denies of any pain, pleasant and cooperative upon assessment. Patient in room air saturating at 95%. Patient is D/C home, Dr Gaxiola, and Dr. Baldemar Contreras made aware. When asked ,he said his son "PENNY" will give him a ride around 2pm. Right forearm IV site were remove. All due meds given per MD order. Discharge instructions given, body assessment done, patients belongings were checked.
[2021-08-01] MEDS: ACIDOPHILUS/BULGARICUS CHEW TAB PO SCH (08:22)
[2021-08-01] MEDS: MULTIVITAMINS,THERAPEUTIC TABLET PO SCH (08:23)
[2021-08-01] MEDS: CARBIDOPA/LEVODOPA 25-100MG TABLET PO SCH ×2 (08:23→12:53)
--- NOTE | 2021-08-01 13:45 | NUR ---
Son "Felton" came to bring patient home. Discharge instructions were given. Medications were explained to the patient and son and the both verbalized understanding. Patient in stable condition, denies of any pain. VW WNL. Offered patient a wheelchair , but patient refused. Escorted patient and son to the lobby.
--- NOTE | 2021-08-01 13:48 | NUR ---
Instructed patient to follow up with PCP on 08/11/21 at 1045am
== END 2021-08-01 13:55 | disposition home health service (06) | DRG 56 ==
PROVIDERS: ADMIT Physical Medicine & Rehabilitation; ATTEND Physical Medicine & Rehabilitation
DX: G20 Parkinson's disease (principal); E43 Unspecified severe protein-calorie malnutrition; N17.0 Acute kidney failure with tubular necrosis; D68.59 Other primary thrombophilia; K56.609 Unspecified intestinal obstruction, unspecified as to partial versus complete obstruction; R17 Unspecified jaundice; A04.9 Bacterial intestinal infection, unspecified; E03.9 Hypothyroidism, unspecified; E78.5 Hyperlipidemia, unspecified; N28.1 Cyst of kidney, acquired; N32.3 Diverticulum of bladder; Z90.49 Acquired absence of other specified parts of digestive tract; R53.81 Other malaise; R26.9 Unspecified abnormalities of gait and mobility; J98.6 Disorders of diaphragm; R73.9 Hyperglycemia, unspecified; K59.00 Constipation, unspecified; K83.9 Disease of biliary tract, unspecified
CPT/HCPCS: 36415; 74018; 83735; 84100; 85025; 97161; A4663; J2543; J7040; J7060

== ENCOUNTER 2024-01-03 20:57 | Inpatient (IN) | payer MEDICARE, OTHER ==
[~2024-01-03] VITALS: Ht 170.2 cm; Wt 72.1 kg
[~2024-01-03 20:57] MED LIST changes: -ASPI-612 PO; -CARB1TAB21 PO; -CINN1CAP PO; -ESOM40CA PO; -IPRA0.2S48 NEB; -RASA0.5T2 PO; -VITA1CAP PO; -ZINC50TA65 PO; -[UNRECOGNIZED DRUG - OTHER] IJ
[2024-01-03] MEDS ORDERED: BISA10SU61 RC (22:08)
[2024-01-03] MEDS ORDERED: ERGO400C PO (22:32)
[2024-01-03] MEDS ORDERED: RASA1TAB4 PO (22:32)
[2024-01-03] MEDS ORDERED: LINA145C PO (22:32)
[2024-01-03] MEDS ORDERED: PANT40TA49 PO (22:32)
[2024-01-03] MEDS ORDERED: FOLI1TAB27 PO (22:32)
[2024-01-03] MEDS ORDERED: REMEDY ESSENTIAL ZINC PASTE 113 GM TOP PRN (23:30)
[2024-01-04] MEDS ORDERED: BISACODYL 10 MG SUPP.RECT RC PRN
[2024-01-04] MEDS ORDERED: ONDANSETRON 4 MG/2 ML VIAL IV PRN
[2024-01-04] MEDS ORDERED: ZOLPIDEM 5 MG TABLET PO PRN
[2024-01-04] MEDS ORDERED: ACETAMINOPHEN 325 MG TABLET PO PRN (00:15)
[2024-01-04 06:00] VITALS: BP 165/70; TEMP 97.9; O2SAT 97
[2024-01-04] MEDS ORDERED: LEVOTHYROXINE SODIUM 75 MCG TABLET PO SCH ×2 (07:00)
[2024-01-04] MEDS ORDERED: RASAGILINE MESYLATE PO SCH (09:00)
[2024-01-04] MEDS ORDERED: CARBIDOPA/LEVODOPA 25-100MG TABLET PO SCH (09:00)
[2024-01-04] MEDS ORDERED: Medication Not On Formulary EA (Cholecalciferol (Vitamin D3) (Vitamin D3) 1 CAP) PO SCH (09:00)
[2024-01-04] MEDS ORDERED: Linaclotide (Linzess) 145 MCG) PO SCH (09:00)
[2024-01-04] MEDS ORDERED: FOLIC ACID 1 MG TABLET PO SCH (09:00)
[2024-01-04] MEDS: CARBIDOPA/LEVODOPA 25-100MG TABLET PO ONE (09:22)
[2024-01-04] MEDS: PANTOPRAZOLE SODIUM 40 MG TABLET.DR PO SCH (09:22)
[2024-01-04] MEDS: MULTIVITAMINS,THERAPEUTIC TABLET PO SCH (09:22)
[2024-01-04] MEDS: ACIDOPHILUS/BULGARICUS CHEW TAB PO SCH (09:22)
[2024-01-04] MEDS: RASAGILINE 1 MG PO SCH (11:23)
[2024-01-04] MEDS: LINZESS 145 MCG PO SCH (11:25)
[2024-01-04 12:02] LABS: BASOPHILS % (AUTO) 0.4 % (0.0-2.0); EOSINOPHILS # (AUTO) 0.1 K/uL (0.0-0.7); EOSINOPHILS % (AUTO) 1.6 % (0.0-7.0); HEMATOCRIT 30.1 % (36.7-47.1); LYMPHOCYTES # (AUTO) 0.8 K/uL (0.8-4.8); LYMPHOCYTES % (AUTO) 12.4 % (20.5-51.5); MEAN CORPUSCULAR HEMOGLOBIN 27.4 uug (23.8-33.4); MEAN CORPUSCULAR HGB CONC 33 g/dL (32.5-36.3); MEAN CORPUSCULAR VOLUME 82.5 fL (73.0-96.2); MONOCYTES # (AUTO) 0.5 K/uL (0.1-1.30); MONOCYTES % (AUTO) 7.9 % (0.0-11.0); NEUTROPHILS # (AUTO) 5.3 K/uL (1.8-8.9); NEUTROPHILS % (AUTO) 77.7 % (38.5-71.5); PLATELET COUNT (AUTO) 320 K/uL (152-348); RED BLOOD CELL COUNT(AUTO) 3.65 MIL/uL (4.06-5.63); RED CELL DISTRIBUTION WIDTH 15.2 % (12.1-16.2); WHITE BLOOD COUNT (AUTO) 6.8 K/uL (3.6-10.2)
[2024-01-04] MEDS ORDERED: MORPHINE SULFATE 4 MG/1 ML DISP.SYRIN IV PRN (12:15)
[2024-01-04 12:33] LABS: DIFFERENTIAL COMMENT 1
[2024-01-04 12:42] LABS: ALANINE AMINOTRANSFERASE 40 U/L (16-63); ALBUMIN 2.8 g/dL (3.4-5.0); ALKALINE PHOSPHATASE 136 U/L (50-136); ASPARTATE AMINOTRANSFERASE 18 U/L (15-37); BILIRUBIN,TOTAL 1.3 mg/dL (0.2-1.0); CALCIUM 8.5 mg/dL (8.5-10.1); CARBON DIOXIDE 29 mmol/L (21-32); CHLORIDE 103 mmol/L (98-107); CHOLESTEROL 134 mg/dL (<200); CREATININE 0.9 mg/dL (0.6-1.3); GLUCOSE 120 mg/dL (74-106); HDL CHOLESTEROL 37 mg/dL (40-60); MAGNESIUM 2.2 mg/dL (1.8-2.4); PHOSPHOROUS 3.4 mg/dL (2.5-4.9); POTASSIUM 4.3 mmol/L (3.5-5.1); SODIUM SERUM 139 mmol/L (136-145); TOTAL PROTEIN, SERUM 6.6 g/dL (6.4-8.2); TRIGLYCERIDES 161 MG/DL (30-150); UREA NITROGEN, BLOOD 20 mg/dL (7-18)
[2024-01-04] MEDS ORDERED: CARB1TAB21 PO (12:45)
[2024-01-04] MEDS ORDERED: LEVO75TA PO (12:46)
[2024-01-04] MEDS ORDERED: LEVO50TA PO (12:46)
[2024-01-04] MEDS ORDERED: CHOL100045 PO (12:49)
[2024-01-04] MEDS: CHOLECALCIFEROL 1,000 UNIT TABLET PO SCH (12:57)
[2024-01-04 12:58] LABS: THYROID STIMULATING HORMONE 3.214 mIU/mL (0.358-3.740)
[2024-01-04] MEDS: CARBIDOPA/LEVODOPA 25-100MG TABLET PO SCH (12:59)
[2024-01-04] MEDS: FOLIC ACID 1 MG TABLET PO SCH (13:00)
[2024-01-04] MEDS: HYDROCODONE/APAP 5-325MG TABLET PO PRN (13:01)
[2024-01-04 15:31] VITALS: BP 53/70; TEMP 98.1; O2SAT 96
[2024-01-04] MEDS: OXYCODONE/APAP 5-325 MG TABLET PO SCH (17:24)
[2024-01-04 20:00] VITALS: BP 97/52; TEMP 97.9; O2SAT 95
[2024-01-05 06:00] VITALS: BP 120/70; TEMP 97.9; O2SAT 96
[2024-01-05] MEDS: LEVOTHYROXINE SODIUM 50 MCG TABLET PO SCH (06:47)
[2024-01-05] MEDS ORDERED: IPRATROPIUM BROMIDE NASAL 15 ML BOTTLE 42 MCG/SPRAY NS PRN (15:00)
[2024-01-05] MEDS ORDERED: IPRATROPIUM 0.06% NS PRN (15:00)
[2024-01-05 15:28] VITALS: BP 106/66; TEMP 97.6; O2SAT 96
[2024-01-05 20:00] VITALS: BP 95/55; TEMP 96.5; O2SAT 94
[2024-01-06 06:00] VITALS: BP 136/71; TEMP 97.8; O2SAT 96
[2024-01-06] MEDS: LEVOTHYROXINE SODIUM 75 MCG TABLET PO SCH (07:00)
[2024-01-06] MEDS: MAGNESIUM HYDROXIDE 30 ML LIQUID UDC PO PRN (11:43)
[2024-01-06 15:51] VITALS: BP 103/59; TEMP 98.4; O2SAT 96
[2024-01-06 20:00] VITALS: BP 103/62; TEMP 98.1; O2SAT 97
[2024-01-07 06:08] VITALS: BP 107/61; TEMP 97.6; O2SAT 98
[2024-01-07] MEDS: LEVOTHYROXINE SODIUM 75 MCG TABLET PO SCH (06:13)
[2024-01-07 16:35] VITALS: BP 100/49; TEMP 97.7; O2SAT 96
[2024-01-07 20:00] VITALS: BP 98/52; TEMP 97.6; O2SAT 95
[2024-01-08 04:57] VITALS: BP 105/54; TEMP 98.1; O2SAT 96
[2024-01-08 05:45] VITALS: BP 126/71; TEMP 97.7; O2SAT 96
[2024-01-08] MEDS: LEVOTHYROXINE SODIUM 75 MCG TABLET PO SCH (06:10)
[2024-01-08] MEDS: IPRATROPIUM 0.06% NS PRN (09:19)
[2024-01-08 16:44] VITALS: BP 100/60; TEMP 98.2; O2SAT 97
[2024-01-08 20:00] VITALS: BP 109/64; TEMP 98.5; O2SAT 97
[2024-01-09 06:00] VITALS: BP 129/71; TEMP 98.4; O2SAT 95
[2024-01-09 15:59] VITALS: BP 113/63; TEMP 97.7; O2SAT 100
[2024-01-09 20:00] VITALS: BP 96/50; TEMP 97.9; O2SAT 95
[2024-01-09 20:58] VITALS: BP 101/61
[2024-01-10 06:00] VITALS: TEMP 98.4
[2024-01-10 16:22] VITALS: BP 96/55; TEMP 98; O2SAT 100
[2024-01-10 20:00] VITALS: BP 111/60; TEMP 97.5; O2SAT 97
[2024-01-11 06:00] VITALS: BP 137/78; TEMP 97.8; O2SAT 100
[2024-01-11 06:51] LABS: BASOPHILS # (AUTO) 0.1 K/UL (0.0-0.2); BASOPHILS % (AUTO) 1.2 % (0.0-2.0); EOSINOPHILS # (AUTO) 0.1 K/uL (0.0-0.7); EOSINOPHILS % (AUTO) 1.9 % (0.0-7.0); HEMATOCRIT 32.5 % (36.7-47.1); HEMOGLOBIN 10.9 g/dL (12.5-16.3); LYMPHOCYTES # (AUTO) 1.1 K/uL (0.8-4.8); LYMPHOCYTES % (AUTO) 23.6 % (20.5-51.5); MEAN CORPUSCULAR HEMOGLOBIN 27.5 uug (23.8-33.4); MEAN CORPUSCULAR HGB CONC 34 g/dL (32.5-36.3); MONOCYTES # (AUTO) 0.5 K/uL (0.1-1.30); MONOCYTES % (AUTO) 9.3 % (0.0-11.0); NEUTROPHILS # (AUTO) 3.1 K/uL (1.8-8.9); PLATELET COUNT (AUTO) 388 K/uL (152-348); RED BLOOD CELL COUNT(AUTO) 3.97 MIL/uL (4.06-5.63); RED CELL DISTRIBUTION WIDTH 16.3 % (12.1-16.2); WHITE BLOOD COUNT (AUTO) 4.9 K/uL (3.6-10.2)
[2024-01-11 06:56] LABS: DIFFERENTIAL COMMENT 1
[2024-01-11 07:05] LABS: IRON, SERUM 36 ug/dL (50-175)
[2024-01-11 07:15] LABS: ALANINE AMINOTRANSFERASE 21 U/L (16-63); ALKALINE PHOSPHATASE 207 U/L (50-136); ASPARTATE AMINOTRANSFERASE 11 U/L (15-37); BILIRUBIN,TOTAL 1.2 mg/dL (0.2-1.0); CALCIUM 8.5 mg/dL (8.5-10.1); CARBON DIOXIDE 31 mmol/L (21-32); CHLORIDE 103 mmol/L (98-107); CREATININE 0.8 mg/dL (0.6-1.3); GLUCOSE 106 mg/dL (74-106); MAGNESIUM 2.2 mg/dL (1.8-2.4); NT-PRO BNP 41 pg/mL (0-125); PHOSPHOROUS 4.3 mg/dL (2.5-4.9); POTASSIUM 4.3 mmol/L (3.5-5.1); SODIUM SERUM 141 mmol/L (136-145); TOTAL PROTEIN, SERUM 6.5 g/dL (6.4-8.2); UREA NITROGEN, BLOOD 22 mg/dL (7-18)
[2024-01-11 16:04] VITALS: BP 109/62; TEMP 97.5; O2SAT 98
[2024-01-11 20:00] VITALS: BP 101/55; TEMP 98.4; O2SAT 96
[2024-01-12 06:00] VITALS: BP 110/59; TEMP 98.2; O2SAT 96
[2024-01-12 15:38] VITALS: BP 97/52; TEMP 97.9; O2SAT 100
[2024-01-12 19:40] VITALS: BP 93/46; TEMP 97.4; O2SAT 97
[2024-01-12 21:29] VITALS: BP 106/54; TEMP 98.1; O2SAT 100
[2024-01-13 06:35] VITALS: BP 119/56; TEMP 97.8; O2SAT 99
[2024-01-13 16:00] VITALS: BP 98/56; TEMP 97.8; O2SAT 98
[2024-01-13 16:39] VITALS: BP 98/56; TEMP 97.7; O2SAT 98
[2024-01-13 20:00] VITALS: BP 90/48; TEMP 98; O2SAT 97
[2024-01-14 06:05] VITALS: BP 123/68; TEMP 98.5; O2SAT 98
[2024-01-14 16:00] VITALS: BP 110/59; TEMP 98; O2SAT 98
[2024-01-14 20:00] VITALS: BP_SYST 114; BP_SYST 139; BP_DIAS 71; BP_DIAS 83; TEMP 97.6; TEMP 98.2; O2SAT 94; O2SAT 98
[2024-01-15 04:00] VITALS: BP 137/78; TEMP 98.1; O2SAT 97
[2024-01-15 15:47] VITALS: BP 108/61; TEMP 98; O2SAT 96
[2024-01-15 19:00] VITALS: BP 98/58; TEMP 96.8; O2SAT 96
[2024-01-15] MEDS ORDERED: DOXYCYCLINE HYCLATE 100 MG INJ IV ONE (21:50)
[2024-01-16] MEDS: DOXYCYCLINE HYCLATE IV 100 MG in IV DEXTROSE 5% 100 ML IV SCH ×2 (04:41→17:17)
[2024-01-16 06:01] VITALS: BP 142/76; TEMP 98.3; O2SAT 100
[2024-01-16 07:15] LABS: BASOPHILS % (AUTO) 0.8 % (0.0-2.0); EOSINOPHILS # (AUTO) 0.1 K/uL (0.0-0.7); EOSINOPHILS % (AUTO) 2.4 % (0.0-7.0); HEMOGLOBIN 11.1 g/dL (12.5-16.3); LYMPHOCYTES # (AUTO) 1.2 K/uL (0.8-4.8); LYMPHOCYTES % (AUTO) 22.1 % (20.5-51.5); MEAN CORPUSCULAR HEMOGLOBIN 27.3 uug (23.8-33.4); MEAN CORPUSCULAR HGB CONC 34 g/dL (32.5-36.3); MONOCYTES # (AUTO) 0.6 K/uL (0.1-1.30); MONOCYTES % (AUTO) 9.8 % (0.0-11.0); NEUTROPHILS # (AUTO) 3.7 K/uL (1.8-8.9); NEUTROPHILS % (AUTO) 64.9 % (38.5-71.5); PLATELET COUNT (AUTO) 280 K/uL (152-348); RED BLOOD CELL COUNT(AUTO) 4.08 MIL/uL (4.06-5.63); RED CELL DISTRIBUTION WIDTH 16.1 % (12.1-16.2); WHITE BLOOD COUNT (AUTO) 5.6 K/uL (3.6-10.2)
[2024-01-16 07:40] LABS: ALBUMIN 3.1 g/dL (3.4-5.0); BILIRUBIN,TOTAL 1.2 mg/dL (0.2-1.0); CALCIUM 8.7 mg/dL (8.5-10.1); CREATININE 0.8 mg/dL (0.6-1.3); POTASSIUM 4.2 mmol/L (3.5-5.1); TOTAL PROTEIN, SERUM 6.9 g/dL (6.4-8.2)
[2024-01-16 07:43] LABS: DIFFERENTIAL COMMENT 1
[2024-01-16 11:58] VITALS: BP 103/53; TEMP 97.9; O2SAT 99
[2024-01-16 19:15] VITALS: BP 100/58; TEMP 97.8; O2SAT 95
[2024-01-17 06:25] VITALS: BP 129/73; TEMP 98; O2SAT 96
[2024-01-17 07:51] VITALS: BP 138/79; TEMP 97.9
[2024-01-17 11:35] VITALS: BP 94/55; TEMP 98.2; O2SAT 97
[2024-01-17 16:54] VITALS: BP 120/72; TEMP 98.2; O2SAT 97
[2024-01-17 20:32] VITALS: BP 91/48; TEMP 97.7; O2SAT 97
[2024-01-18 06:34] VITALS: BP 146/80; TEMP 97.6; O2SAT 98
[2024-01-18 15:20] VITALS: BP 93/58; TEMP 98; O2SAT 98
[2024-01-18 17:00] VITALS: BP 111/62; O2SAT 99
[2024-01-18 20:00] VITALS: BP 152/104; TEMP 97.4; O2SAT 100
[2024-01-19 06:00] VITALS: BP 125/71; TEMP 97.5; O2SAT 99
[2024-01-19 16:00] VITALS: BP 116/80; TEMP 98; O2SAT 99
[2024-01-19 20:00] VITALS: BP 106/55; TEMP 98; O2SAT 99
[2024-01-20 06:00] VITALS: BP 135/75; TEMP 98; O2SAT 100
[2024-01-20 16:30] VITALS: BP 122/73; TEMP 98.4; O2SAT 95
[2024-01-20 20:00] VITALS: BP 117/69; TEMP 97.7; O2SAT 100
[2024-01-21 06:00] VITALS: BP 129/76; TEMP 97.8; O2SAT 99
[2024-01-21] MEDS ORDERED: IPRA42SP NS (09:22)
== END 2024-01-21 15:50 | disposition home health service (06) | DRG 560 ==
PROVIDERS: ADMIT Physical Medicine & Rehabilitation Pain Medicine; ATTEND Physical Medicine & Rehabilitation Pain Medicine
DX: S22.42XD Multiple fractures of ribs, left side, subsequent encounter for fracture with routine healing (principal); D68.59 Other primary thrombophilia; E44.0 Moderate protein-calorie malnutrition; L03.116 Cellulitis of left lower limb; R53.1 Weakness; V03.10XD Pedestrian on foot injured in collision with car, pick-up truck or van in traffic accident, subsequent encounter; S27.0XXD Traumatic pneumothorax, subsequent encounter; G20.A1 Parkinson's disease without dyskinesia, without mention of fluctuations; D64.9 Anemia, unspecified; D69.6 Thrombocytopenia, unspecified; E03.9 Hypothyroidism, unspecified; E04.1 Nontoxic single thyroid nodule; I25.10 Atherosclerotic heart disease of native coronary artery without angina pectoris; K21.9 Gastro-esophageal reflux disease without esophagitis; S70.12XD Contusion of left thigh, subsequent encounter; R73.03 Prediabetes; D50.9 Iron deficiency anemia, unspecified; D63.8 Anemia in other chronic diseases classified elsewhere; E88.09 Other disorders of plasma-protein metabolism, not elsewhere classified; Z66 Do not resuscitate; K83.8 Other specified diseases of biliary tract
CPT/HCPCS: 36415; 71045; 83550; 83735; 84100; 84443; 84480; 85025; 97535-GO-CO; A4663; A6213; J3490